=== PATIENT | male | born 1985 | race Caucasian/White ===

== ENCOUNTER 2018-12-18 10:26 | Emergency (ER) | payer BC ==
[~2018-12-18] VITALS: Ht 170.2 cm; Wt 101.2 kg
[2018-12-18 10:31] VITALS: Ht 170.2 cm; Wt 101.2 kg
[2018-12-18 14:25] VITALS: BP 150/94
== END 2018-12-18 14:25 | disposition home or self-care (01) ==
LOC: ED 10:26
DX: T15.02XA Foreign body in cornea, left eye, initial encounter (principal); I10 Essential (primary) hypertension; W45.8XXA Other foreign body or object entering through skin, initial encounter; Y93.89 Activity, other specified; Y92.89 Other specified places as the place of occurrence of the external cause; Y99.8 Other external cause status
CPT/HCPCS: 90715